=== PATIENT | male | born 1960 | race Caucasian/White ===

== ENCOUNTER → 2017-02-05 | Outpatient (CLI) | payer MEDICARE ==
--- NOTE | 2017-02-05 17:31 | Diagnostic Imaging Report ---
PROCEDURE: MR imaging cervical spine without contrast. TECHNIQUE: Multiplanar, multisequence MR imaging of the cervical spine was performed without contrast. INDICATION: Neck pain. FINDINGS: There is straightening of the cervical spine curvature. The alignment of the posterior spinal line is satisfactory. The vertebral body heights are preserved. There is no suspicious marrow signal abnormality. There is disc desiccation at multiple levels. The spinal cord demonstrates no definite cord signal abnormality. The foramen magnum and upper cervical canal are widely patent. C2/3: There is a mild left paracentral disc spur complex with no associated spinal canal stenosis. No foraminal narrowing. C3/4: There is no disc herniation. There is no spinal canal stenosis. There is facet arthropathy, more prominent on the right side associated with [id number] right foraminal stenosis. The left foramen is patent. C4/5: There is a prominent disc spur complex associated with spinal canal stenosis of moderate degree reducing the AP dimension of the canal to 7.4 mm. This flattens the anterior margin of the spinal cord with no significant compression otherwise. No cord signal abnormality. The neural foramina demonstrate jlfmfvxq-bh-vvcbqs stenosis bilaterally. C5/6: There is a spur disc complex with mild spinal canal stenosis. There is fmfuayus-kn-ucyauh stenosis of the right neural foramen and moderate spinal canal stenosis on the left. C6/7: There is a spur disc complex asymmetric to the left associated with mild spinal canal stenosis reducing the AP dimension of the canal to 9.3 mm. There is mild flattening of the anterior spinal cord at the left side of the cord without significant compression otherwise and no cord signal abnormality. There is mild foraminal stenosis on the left. C7/T1: No disc herniation, no spinal canal or foraminal stenosis. IMPRESSION: Mid to lower lumbar spine prominent degenerative changes with most prominent spinal canal stenosis at C4/5 level. Multilevel neural foraminal stenosis. Dictated by: Dictated on workstation # [id number]
== END ==
LOC: RAD 15:26
PROVIDERS: ATTEND Orthopaedic Surgery Orthopaedic Surgery of the Spine
DX: M47.816 Spondylosis without myelopathy or radiculopathy, lumbar region (principal); M48.02 Spinal stenosis, cervical region
CPT/HCPCS: 72141

== ENCOUNTER → 2017-02-12 | Outpatient (CLI) | payer MEDICARE ==
--- NOTE | 2017-02-12 17:27 | Diagnostic Imaging Report ---
PROCEDURE: MRI lumbar spine. TECHNIQUE: Multiplanar, multisequence MRI of the lumbar spine was performed without contrast. INDICATION: Neck and back pain. FINDINGS: There is minimal compression deformity of L1 vertebral body with normal bone marrow signal compatible with an old fracture. The only marrow abnormality is at the endplate superiorly and inferiorly which is degenerative related with mild reactive edema. At the junction of L1 and L2, there is a slight transition in the curvature with minimal focal kyphosis probably secondary to the old compression deformity. If there is no history of old fracture, this could be developmental. There is disc desiccation of mild degree at all levels. No significant disc height loss. The cauda equina and conus medullaris appear grossly unremarkable. T12/L1: There is no disc herniation, no spinal canal or foraminal stenosis. L1/2: There is a mild disc bulge and mild facet hypertrophy. No central canal or lateral recess stenosis. No foraminal narrowing. L2/3: No disc herniation. There is moderate facet hypertrophy. No central canal, or lateral recess stenosis. No foraminal narrowing. L3/4: Minimal diffuse disc herniation seen. There is bilateral moderate facet hypertrophy. Minimal facet joint fluid is seen bilaterally. No central canal stenosis. No significant lateral recess narrowing. The foramina demonstrate only mild stenosis on the right side. No left foraminal stenosis. L4/5: There is no disc herniation. There is bilateral moderate facet hypertrophy. No central canal or lateral recess stenosis. There is bilateral mild foraminal stenosis. The outer aspect of the left foramen demonstrates suggestion of a spur projecting towards the exiting left L4 spinal nerve. L5/S1: There is a mild disc bulge and mild facet hypertrophy. No central canal stenosis. No lateral recess stenosis. The foramina appear patent. IMPRESSION: 1. Mid to lower lumbar spine facet degenerative changes with minimal disc herniations as described. 2. There is bilateral mild foraminal stenosis at L4/5 level. There is however suggestion of a spur projecting posteriorly from the left lateral inferior endplate of L4 vertebral body abutting the exiting L4 nerve root. This may possibly be associated with nerve irritation although no significant compression appears to be present. If this matches the patient's symptoms, then confirmation of presence of this suspected spur with a CT scan is recommended. Dictated by: Dictated on workstation # [id number]
== END ==
LOC: RAD 15:27
PROVIDERS: ATTEND Orthopaedic Surgery Orthopaedic Surgery of the Spine
DX: M48.06 Spinal stenosis, lumbar region (principal)
CPT/HCPCS: 72148

== ENCOUNTER → 2019-01-01 | Outpatient (CLI) | payer MEDICARE ==
--- NOTE | 2019-01-01 13:04 | Diagnostic Imaging Report ---
INDICATION: Patient with hematuria. EXAM: Ultrasound of both kidneys. COMPARISON: CT scan of the abdomen performed without and with IV contrast dated 08/26/2009. FINDINGS: There is a 2.5 cm x 2.5 cm x 2.2 cm cyst involving the superoanterior aspect of the right kidney. This cyst was seen on the prior study and previously measured 1.5 cm in greatest dimension. The previously seen remeasured at 2.3 cm cyst involving the posterior midportion of the right kidney is not seen on this exam and may have resolved. Otherwise, both kidneys are normal in size, shape, echogenicity and cortical thickness without hydronephrosis, stones, or other focal lesions with the right and left kidneys measuring 13.0 cm and 12.7 cm in their craniocaudal dimensions, respectively. Bilateral ureteral jets are seen. The bladder is fluid distended with no gross abnormality. There are incidental note of stones within the gallbladder. IMPRESSION: 1: Interval increased size of a right renal cyst. Suspected resolution of the previously seen right renal cyst. 2: Otherwise, both kidneys are unremarkable. There is no hydronephrosis. 3: Bladder is unremarkable, as visualized. 4: Incidental note of cholelithiasis. Dictated by: Dictated on workstation # [id number]
== END ==
LOC: RAD 11:39
PROVIDERS: ATTEND Pediatrics
DX: K80.20 Calculus of gallbladder without cholecystitis without obstruction (principal); N28.1 Cyst of kidney, acquired
CPT/HCPCS: 76770

== ENCOUNTER → 2019-01-16 | Outpatient (CLI) | payer MEDICARE ==
[~2019-01-16] MED LIST: CATHETER FLUSH 10 ML SYR IV PRN; HOLD METFORMIN - RECEIVED CONTRAST 20 ML VIAL IV SCH; IOHEXOL 350 MG/ML 100 ML (OMNIPAQUE 350) VIAL IV ONE
[2019-01-16 12:13] LABS: BUN/CREATININE RATIO 10; CALCIUM 9.4 MG/DL (8.5-10.1); CARBON DIOXIDE 25 MMOL/L (21-32); CHLORIDE 108 MMOL/L (98-107); CREATININE SERUM 0.83 MG/DL (0.60-1.30); GFR ESTIMATED > 60; GLUCOSE 113 MG/DL (70-105); POTASSIUM 4.1 MMOL/L (3.6-5.0); SODIUM 141 MMOL/L (135-145)
--- NOTE | 2019-01-16 13:39 | Diagnostic Imaging Report ---
PROCEDURE: CT chest with contrast only. TECHNIQUE: Multiple contiguous axial images were obtained through the chest after administration of intravenous contrast. Auto Exposure Controls were utilized during the CT exam to meet ALARA standards for radiation dose reduction. INDICATION: Left-sided chest pain, history of melanoma. COMPARISON: There are no prior CT chest examinations available for comparison. FINDINGS: There is a small 10 mm irregular parenchymal density along the periphery of the left midlung (image 25/50, series 3). There is a second vague parenchymal density in the left upper lung measuring 5.6 mm (images 17/50, series 2). There is also 3.4 mm nodular density in the periphery of the right upper lobe (image 21/50, series 3). A 4.2 mm nodule is also seen in the lingula (image 30/50, series 3). There may be a 1.9 mm nodule in the left lung base as well (image 33/50). These parenchymal densities are of uncertain etiology, although most likely benign. Even so, a short-term (three-month) followup CT chest exam would be recommended for further evaluation. There is also a vague alveolar/interstitial infiltrate in the left upper lung. This could be chronic in nature but the possibility that there is an element of mild acute pneumonia/atelectasis should still be considered. This finding could also be further evaluated on the followup exam. There is no other evidence for pneumonia. There is no sign of failure. There is no pleural effusion identified either. The heart size is within normal limits. There are coronary artery calcifications evident. The aorta is not abnormally dilated and there is no sign of dissection. The pulmonary arteries were not well opacified and consequently difficult to assess for pulmonary embolus. There is no obvious pulmonary embolus identified. There is air in the main pulmonary artery. Most likely, this is related to the injection of the contrast. There is no mediastinal or hilar adenopathy. The thyroid gland, where visualized, is unremarkable. The sections through the upper abdomen fail to show any sign of an acute abnormality. The 1.6 cm cyst arising from the right kidney seen on the CT abdomen/pelvis exam of 08/26/2009 now measures 2.4 cm. The bone windows are unremarkable for fracture or for destructive lesion. IMPRESSION: 1. The faint alveolar/interstitial infiltrate in the left upper lung is of uncertain etiology but worrisome for mild pneumonia/atelectasis. Clinical followup is recommended. 2. There is no acute cardiopulmonary abnormality noted, otherwise. 3. The parenchymal opacities in both lungs are of uncertain etiology, although most likely benign. Even so, a short-term (three-month) followup CT chest exam would be recommended for further evaluation. Dictated by: Dictated on workstation # [id number]
== END ==
LOC: RAD 11:47
PROVIDERS: ATTEND Pediatrics
DX: R07.89 Other chest pain (principal); R91.8 Other nonspecific abnormal finding of lung field; Z72.0 Tobacco use; Z85.820 Personal history of malignant melanoma of skin
CPT/HCPCS: 36415; 71260; 80048

== ENCOUNTER → 2019-02-06 | Outpatient (CLI) | payer MEDICARE ==
--- NOTE | 2019-02-06 16:57 | Diagnostic Imaging Report ---
PROCEDURE: CT abdomen with contrast only. TECHNIQUE: Multiple contiguous axial images were obtained through the abdomen after the administration of intravenous contrast. Auto Exposure Controls were utilized during the CT exam to meet ALARA standards for radiation dose reduction. INDICATION: Abdominal mass. COMPARISON: CT abdomen from 08/26/2009. FINDINGS: Lung bases are clear. No pericardial or pleural effusion. No free intraperitoneal air or fluid. No abdominal hernia. The liver and spleen are normal. The liver measures 18 cm in craniocaudal dimension. Pancreas enhances normally without surrounding inflammatory changes. Gallbladder is normally filled without radiopaque stones. No biliary duct dilatation. Adrenals are normal. There are a few scattered small cortical-based renal cysts. The largest is in the upper pole on the right measuring 2.4 x 2.2 cm. No abdominal lymphadenopathy. Normal-caliber abdominal aorta. Minimal degenerative changes in the thoracolumbar spine. IMPRESSION: 1. No organomegaly or abdominal mass. 2. No abdominal hernia. Dictated by: Dictated on workstation # [id number]
== END ==
LOC: RAD 15:57
PROVIDERS: ATTEND Pediatrics
DX: R19.00 Intra-abdominal and pelvic swelling, mass and lump, unspecified site (principal)
CPT/HCPCS: 74160

== ENCOUNTER → 2019-04-29 | Outpatient (CLI) | payer MEDICARE ==
[~2019-04-29] MED LIST changes: -CATHETER FLUSH 10 ML SYR IV PRN; +GADOBUTROL 15 MMOL/15 ML (GADAVIST) VIAL IV ONE; -HOLD METFORMIN - RECEIVED CONTRAST 20 ML VIAL IV SCH; -IOHEXOL 350 MG/ML 100 ML (OMNIPAQUE 350) VIAL IV ONE
[2019-04-29 14:17] LABS: BUN/CREATININE RATIO 12; CREATININE SERUM 0.92 MG/DL (0.60-1.30); GFR ESTIMATED > 60
--- NOTE | 2019-04-29 15:12 | Diagnostic Imaging Report ---
PROCEDURE: MR imaging cervical spine without contrast. TECHNIQUE: Multiplanar, multisequence MR imaging of the cervical spine was performed without contrast. INDICATION: Neck pain. Headaches. COMPARISON: Cervical spine MRI without contrast from 02/05/2017. FINDINGS: Grade 1 retrolisthesis of C4 on C5 has increased since the prior exam. Alignment is otherwise unremarkable. Vertebral body heights are preserved. Moderate degenerative endplate changes at C4-C5. Bone marrow signal is otherwise unremarkable. No abnormal signal in the cervical spinal cord. The visualized paravertebral soft tissues are unremarkable. The cervical carotid and vertebral artery flow voids appear preserved. C2-C3: No spinal canal or neuroforaminal narrowing. C3-C4: No spinal canal or neuroforaminal narrowing. C4-C5: The retrolisthesis combines with posterior disc osteophyte complex and results in yrswpspz-yt-dssfuvtq spinal canal narrowing. There is also advanced bilateral neuroforaminal narrowing. C5-C6: No substantial spinal canal narrowing. Uncovertebral and facet arthropathy result in moderate right and mild left neuroforaminal narrowing. C6-C7: Left paracentral disc protrusion results in mild spinal canal and advanced left neuroforaminal narrowing. There is mild right neuroforaminal narrowing. C7-T1: No spinal canal or neuroforaminal narrowing. IMPRESSION: 1. Spondylotic changes result in high-grade spinal canal narrowing at C4-C5. No abnormal signal in the cervical spinal cord. 2. Multilevel high-grade neuroforaminal narrowing, detailed above. This is exacerbated on the left at C6-C7 by a left paracentral disc protrusion. 3. No acute osseous or ligamentous findings. Dictated by: Dictated on workstation # [id number]
--- NOTE | 2019-04-29 15:20 | Diagnostic Imaging Report ---
PROCEDURE: MR imaging of the brain with and without contrast. TECHNIQUE: Multiplanar, multisequence MR imaging of the brain was performed with and without contrast. INDICATION: Intractable headache. COMPARISON: None. FINDINGS: No abnormal intracranial signal or enhancement. No restricted water diffusion or hemosiderin deposition. Normal morphology including the major midline structures, sella, posterior fossa and cerebellopontine angle. No hydrocephalus or extra-axial fluid collections. Normal intracranial flow voids. The orbits are negative. The paranasal sinuses and mastoids are clear. Normal bone marrow signal. IMPRESSION: Normal MRI of the brain without and with IV contrast. Dictated by: Dictated on workstation # [id number]
== END ==
LOC: RAD 13:46
PROVIDERS: ATTEND Neurological Surgery
DX: M47.812 Spondylosis without myelopathy or radiculopathy, cervical region (principal); M48.02 Spinal stenosis, cervical region; M43.12 Spondylolisthesis, cervical region; M25.78 Osteophyte, vertebrae; M46.82 Other specified inflammatory spondylopathies, cervical region; M50.223 Other cervical disc displacement at C6-C7 level
CPT/HCPCS: 36415; 70553; 72141; 82565; 84520

== ENCOUNTER → 2019-05-18 | Outpatient (CLI) | payer MEDICARE ==
[~2019-05-18] MED LIST changes: -GADOBUTROL 15 MMOL/15 ML (GADAVIST) VIAL IV ONE; +HOLD METFORMIN - RECEIVED CONTRAST 20 ML VIAL IV SCH; +IOHEXOL 350 MG/ML 100 ML (OMNIPAQUE 350) VIAL IV ONE; +NS 100 ML (IVPB) BAG IV ONE
--- NOTE | 2019-05-18 18:58 | Diagnostic Imaging Report ---
PROCEDURE: CT abdomen and pelvis with contrast. TECHNIQUE: Multiple contiguous axial images were obtained through the abdomen and pelvis after administration of intravenous contrast. Auto Exposure Controls were utilized during the CT exam to meet ALARA standards for radiation dose reduction. DATE: May 18, 2019. COMPARISON: CT abdomen February 06, 2019. CT chest January 16, 2019. INDICATION: 58-year-old male, history of melanoma. Hematuria. Increased liver enzymes. FINDINGS: There is a focal area of predominantly linear opacification in the lingula on axial image 4 measuring approximately 4 mm in maximum size. This is unchanged since prior CT chest of January 16, 2019. The additional visualized portions of the lung bases are clear. The heart is not enlarged. There is no pericardial effusion. The liver is normal in size and contour. There is no identified liver lesion. The main, right, and left portal veins are patent. The gallbladder is moderately distended. There is no CT apparent gallstone. There is no evidence to suggest acute cholecystitis. There is no biliary ductal dilation. The main pancreatic duct is not abnormally dilated. The pancreatic parenchyma is unremarkable. The spleen is normal in size. There is an accessory splenule on axial image 16. The adrenal glands are unremarkable. There are low-attenuation right renal lesions. One of the largest is on axial image 26 measuring 2.3 cm in size with internal attenuation measuring 17 Hounsfield units. This does not meet specific criteria for a diagnosis of a benign right renal cyst although does qualify based on prior imaging. There is an additional benign right renal cyst on axial image 30. There is an 11 mm low-attenuation right renal lesion on axial image 29 which is also consistent with a benign cyst. There is no identified concerning renal mass. The urinary collecting systems are not distended. There is no identified renal or ureteral stone. The urinary bladder is underdistended and not well evaluated. There is mild diverticulosis without evidence of acute diverticulitis. The intestinal tract is not distended. There is no evidence of acute appendicitis. There is no free intraperitoneal air. There is no drainable fluid collection. There is no free pelvic fluid. There are atherosclerotic calcifications. There is no identified abnormally enlarged lymph node in the abdomen or pelvis which meets CT size criteria for adenopathy. There are degenerative changes of the spine. There is no identified acute bony abnormality. There is a benign vertebral body hemangioma of T11. IMPRESSION: CT ABDOMEN AND PELVIS. 1. No identified liver lesion. Unremarkable CT appearance of the liver. 2. Moderate gallbladder distention without CT apparent gallstones, evidence of acute cholecystitis, or biliary ductal dilation. 3. Benign right renal cyst. No suspicious renal mass. 4. No identified renal or ureteral stone. No identified urothelial filling defect. No hydronephrosis. 5. 5 mm somewhat linear opacity in the lingula unchanged since January 16, 2019 CT chest. Dictated by: Dictated on workstation # [id number]
== END ==
LOC: RAD 15:20
PROVIDERS: ATTEND Internal Medicine Hematology & Oncology
DX: C43.61 Malignant melanoma of right upper limb, including shoulder (principal); K82.8 Other specified diseases of gallbladder; N28.1 Cyst of kidney, acquired; R91.8 Other nonspecific abnormal finding of lung field; R31.9 Hematuria, unspecified
CPT/HCPCS: 74177

== ENCOUNTER → 2019-11-27 | Outpatient (CLI) | payer MEDICARE, OTHER ==
--- NOTE | 2019-11-27 12:55 | Diagnostic Imaging Report ---
INDICATION: Right knee pain. Status post fall on steps, hurting knee back in 2007. TECHNIQUE: 3 views of the right knee CORRELATION STUDY: None FINDINGS: The joint spaces are maintained. The articular surfaces are smooth and preserved. There is no acute bony abnormality. Very small spur like formation superior pole patella. Soft tissues are unremarkable. IMPRESSION: 1. Negative for acute bony abnormality of the knee. Dictated by: Dictated on workstation # [id number]
--- NOTE | 2019-11-27 12:56 | Diagnostic Imaging Report ---
INDICATION: Status post fall on steps. Hip pain, pops. TECHNIQUE: 2 views of the left hip. CORRELATION STUDY: None FINDINGS: Images of the hip demonstrate no evidence for acute fracture. Alignment is anatomic. The femoral head acetabular relationship is unremarkable. The bony trabecular pattern is intact. IMPRESSION: 1. Unremarkable examination of the left hip. Dictated by: Dictated on workstation # [id number]
== END ==
LOC: RAD 11:32
PROVIDERS: ATTEND Pediatrics
DX: M25.552 Pain in left hip (principal); M25.561 Pain in right knee
CPT/HCPCS: 73502; 73562

== ENCOUNTER → 2019-12-21 | Outpatient (CLI) | payer MEDICARE | LOC: ORTHO 09:04 | PROVIDERS: ATTEND Orthopaedic Surgery | DX: M51.26 Other intervertebral disc displacement, lumbar region (principal); M17.11 Unilateral primary osteoarthritis, right knee; M70.62 Trochanteric bursitis, left hip | CPT/HCPCS: 99203 ==